=== PATIENT | male | born 1985 | race Caucasian/White ===

== ENCOUNTER 2017-09-01 18:57 | Emergency (ER) | payer MEDICARE, MEDICAID ==
[2017-09-01] MEDS ORDERED: Ibuprofen 800 MG TAB ONE (19:10)
[2017-09-01] MEDS ORDERED: Oseltamivir 75 MG CAP ONE (19:53)
== END 2017-09-01 20:00 | disposition home or self-care (01) ==
LOC: NAV ERS 18:57
DX: J11.1 Influenza due to unidentified influenza virus with other respiratory manifestations (principal)
CPT/HCPCS: 99283

== ENCOUNTER 2018-02-20 20:20 | Emergency (ER) | payer MEDICARE, OTHER ==
[2018-02-20] MEDS ORDERED: Naproxen 500 MG TAB ONE (20:38)
== END 2018-02-20 20:45 | disposition home or self-care (01) ==
LOC: NAV ERS 20:20
DX: R20.2 Paresthesia of skin (principal)
CPT/HCPCS: 99283

== ENCOUNTER 2018-10-26 20:24 | Emergency (ER) | payer MEDICARE, MEDICAID ==
[2018-10-26] MEDS ORDERED: Ibuprofen 200 MG TAB ONE (20:41)
[2018-10-26] MEDS ORDERED: Benzonatate 100 MG CAP ONE ×2 (20:41→20:44)
== END 2018-10-26 20:51 | disposition home or self-care (01) ==
LOC: NAV ERS 20:24
DX: R05 Cough (principal)
CPT/HCPCS: 99283

== ENCOUNTER 2021-08-14 18:12 | Emergency (ER) | payer MEDICARE, OTHER ==
[2021-08-15 20:21] LABS: SARS-CoV-2 PCR by NAA DETECTED (NotDetected)
== END 2021-08-14 19:00 | disposition home or self-care (01) ==
LOC: NAV ERS 18:12
DX: U07.1 COVID-19 (principal)
CPT/HCPCS: 87804; 99283; U0003; U0005

== ENCOUNTER 2021-10-16 21:54 | Emergency (ER) | payer OTHER ==
[2021-10-16] MEDS ORDERED: Proparacaine 0.5% Opth 15 ML BOT ONE (22:04)
[2021-10-16] MEDS ORDERED: Fluorescein Opthalmic Strip ONE (22:04)
[2021-10-16] MEDS ORDERED: Tetracaine 0.5% PF 4 ML BOT ONE (22:09)
== END 2021-10-16 22:32 | disposition home or self-care (01) ==
LOC: NAV ERS 21:54
DX: S05.02XA Injury of conjunctiva and corneal abrasion without foreign body, left eye, initial encounter (principal); X58.XXXA Exposure to other specified factors, initial encounter
CPT/HCPCS: 99283

== ENCOUNTER 2022-06-13 18:12 | Emergency (ER) | payer OTHER ==
[2022-06-13] MEDS ORDERED: Tetracaine 0.5% PF 4 ML BOT ONE (18:31)
[2022-06-13] MEDS ORDERED: Fluorescein Opthalmic Strip ONE (18:31)
== END 2022-06-13 18:48 | disposition home or self-care (01) ==
LOC: NAV ERS 18:12
DX: H10.11 Acute atopic conjunctivitis, right eye (principal)
CPT/HCPCS: 99283

== ENCOUNTER 2023-12-08 13:02 | Emergency (ER) | payer OTHER ==
[2023-12-08] MEDS ORDERED: Ibuprofen 800 MG TAB ONE (13:30)
== END 2023-12-08 14:01 | disposition home or self-care (01) ==
LOC: NAV ERS 13:02
DX: S90.212A Contusion of left great toe with damage to nail, initial encounter (principal); W22.8XXA Striking against or struck by other objects, initial encounter